=== PATIENT | female | born 1955 | race Caucasian/White ===

== ENCOUNTER 2018-09-05 05:48 | Emergency (ER) | payer BC, OTHER ==
[~2018-09-05] VITALS: Ht 170.2 cm; Wt 120.1 kg
[2018-09-05 06:00] VITALS: BP 167/75; PULSE 85; RESP 18; Ht 170.2 cm; Wt 120.1 kg
[2018-09-05] MEDS ORDERED: PSEU-79 PO (07:07)
[2018-09-05] MEDS ORDERED: AZIT250T PO (07:07)
[2018-09-05] MEDS ORDERED: BENZ-6 PO (07:07)
[2018-09-05] MEDS ORDERED: PROM6.2515 PO (07:07)
--- NOTE | 2018-09-05 07:32 | ERD ---
ER Documentation Chief Complaint Chief Complaint headache/cough/runny nose/sore throat x 1 week. also c/o frequent urination HPI 62-year-old female presenting with a runny nose cough and sore throat x1 week. Patient has some sinus congestion with ear pain and sore throat she is been taking Mucinex with no alleviation of symptoms. She has a productive cough occasionally with phlegm denies any fevers. Patient is also concerned she may have a urinary tract infection. She states she has urinary frequency with no dysuria. Denies hematuria and denies fevers. Denies medical problems. Allergy to Augmentin told sulfa and codeine. Social history denies. Surgical history foot surgery, cholecystectomy, hernia and . Social history denies ROS All systems reviewed and are negative except as per history of present illness. Medications Home Meds Active Scripts Promethazine Hcl* (Promethazine Hcl* Syrup) 6.25 Mg/5 Ml Syrup, 6.25 MG PO Q6H PRN for COUGH, #100 ML Prov:BRANDON LEWIS PA-C 09/05/18 Benzonatate* (Tessalon Perle*) 100 Mg Capsule, 100 MG PO Q8H PRN for COUGH, #30 CAP Prov:BRANDON LEWIS PA-C 09/05/18 Pseudoephedrine Hcl* (Suphedrin*) 30 Mg Tablet, 30 MG PO Q6 PRN for CONGESTION, #30 TAB Prov:BRANDON LEWIS PA-C 09/05/18 Azithromycin* (Zithromax*) 250 Mg Tablet, 250 MG PO .NataliePACK DIRECTED, #6 TAB TAKE 500 MG (2 TABS) THE FIRST DAY THEN 250 MG (1 TAB) DAYS 2-5 Prov:BRANDON LEWIS PA-C 09/05/18 Allergies Allergies: Coded Allergies: Sulfa (Sulfonamide Antibiotics) (Verified Allergy, Unknown, 09/05/18) amoxicillin (Verified Allergy, Unknown, 09/05/18) clavulanic acid (Verified Allergy, Unknown, 09/05/18) codeine (Verified Allergy, Unknown, 09/05/18) PMhx/Soc History of Surgery: Yes (C/S, Callie, Hernia repair) Anesthesia Reaction: No Hx Cardiac Disorders: Yes (HTN, Hyperlipidemia) Hx Alcohol Use: No Hx Substance Use: No Hx Tobacco Use: No Smoking Status: Never smoker FmHx Family History: No diabetes, No coronary disease, No other Physical Exam Vitals Vital Signs Date Temp Pulse Resp B/P (MAP) Pulse Ox O2 O2 Flow FiO2 Time Delivery Rate 09/05/18 98.5 85 18 167/75 96 06:00 (105) Physical Exam GENERAL: The patient is well-appearing, well-nourished, in no acute distress HEENT: Atraumatic. Conjunctivae are pink. Pupils equal, round, and reactive to light. There is no scleral icterus. Tympanic membranes clear bilaterally. Oropharynx clear. NECK: C-spine is soft and supple. There is no meningismus. There is no cervical lymphadenopathy. CHEST: Clear to auscultation bilaterally. There are no rales, wheezes or rhonchi. HEART: Regular rate and rhythm. No murmurs, clicks, rubs or gallops. Results 24 hrs Laboratory Tests Test 09/05/18 06:40 Bedside Urine pH (LAB) 6.0 Bedside Urine Protein (LAB) Negative Bedside Urine Glucose (UA) Negative Bedside Urine Ketones (LAB) Negative Bedside Urine Blood Negative Bedside Urine Nitrite (LAB) Negative Bedside Urine Leukocyte Esterase (L Trace POC Beta HCG, Qualitative NEGATIVE Procedures/MDM ER course: Urinalysis negative. MDM: 62-year-old female presenting with URI symptoms. Patient states her symptoms are worsening so I will treat with antibiotics. I have low suspicion for meningitis or sepsis. I have low suspicion for pneumonia. Patient is discharged with supportive medications. Patient is told if symptoms change or worsen to return immediately to the ER. All questions answered at discharge Departure Diagnosis: Primary Impression: Sinusitis Condition: Stable Patient Instructions: Sinusitis, Abx Tx Referrals: [facility] YOU HAVE RECEIVED A MEDICAL SCREENING EXAM AND THE RESULTS INDICATE THAT YOU DO NOT HAVE A CONDITION THAT REQUIRES URGENT TREATMENT IN THE EMERGENCY DEPARTMENT. FURTHER EVALUATION AND TREATMENT OF YOUR CONDITION CAN WAIT UNTIL YOU ARE SEEN IN YOUR DOCTORS OFFICE WITHIN THE NEXT 1-2 DAYS. IT IS YOUR RESPONSIBILITY TO MAKE AN APPOINTMENT FOR FOLOW-UP CARE. IF YOU HAVE A PRIMARY DOCTOR --you should call your primary doctor and schedule an appointment IF YOU DO NOT HAVE A PRIMARY DOCTOR YOU CAN CALL OUR PHYSICIAN REFERRAL HOTLINE AT IF YOU CAN NOT AFFORD TO SEE A PHYSICIAN YOU CAN CHOSE FROM THE FOLLOWING [facility] CL[facility]ICS [facility] [address] [facility] [address] [facility] [facility] [address] [facility] [address] [facility]. [facility] [address] [facility]. [facility] [address] Additional Instructions: FOLLOW UP WITH YOUR PRIMARY CARE PHYSICIAN TOMORROW.Return to this facility if you are not improving as expected. BRANDON LEWIS PA-C Sep 05, 2018 07:32
== END 2018-09-05 07:20 | disposition home or self-care (01) ==
LOC: FTE 05:48 → EEVIPCON 05:48 → FTE 07:20
DX: J01.90 Acute sinusitis, unspecified (principal); I10 Essential (primary) hypertension
CPT/HCPCS: 81003; 81025; 99283